=== PATIENT | male | born 1955 | race Two or more races ===

== ENCOUNTER 2020-01-31 11:06 | Emergency (ER) | payer SELFPAY ==
[~2020-01-31] VITALS: Ht 167.6 cm; Wt 75.0 kg
[2020-01-31 11:24] VITALS: BP 131/71
[2020-01-31] MEDS ORDERED: MECLIZINE 25MG TABLET PO ONE (15:45)
[2020-01-31 16:21] LABS: BASOPHILS % 0.9 % (0.0-2.0); EOSINOPHILS % 4.9 % (0.0-5.0); HEMATOCRIT. 46.8 % (42.0-52.0); LYMPHOCYTES % 24.2 % (20.0-50.0); MEAN CORPUSCULAR HEMOGLOBIN 31.8 pg (28.0-32.0); MEAN CORPUSCULAR VOLUME 93.1 fL (80.0-94.0); MEAN PLATELET VOLUME 8.8 fl (7.4-10.4); MONOCYTES % 7.8 % (2.0-8.0); NEUTROPHILS % 62.2 % (40.0-76.0); PLATELET 261 x1000/uL (130-400); RED BLOOD CELL COUNT 5.03 mill/uL (4.7-6.1); RED CELL DISTRIBUTION WIDTH 14.3 % (11.6-14.6)
[2020-01-31 16:23] LABS: CHLORIDE 109 mEq/L (98-107)
== END 2020-01-31 18:40 | disposition left against medical advice (07) ==
LOC: ER 11:06
DX: R42 Dizziness and giddiness (principal); E11.9 Type 2 diabetes mellitus without complications; I11.9 Hypertensive heart disease without heart failure; E78.00 Pure hypercholesterolemia, unspecified
CPT/HCPCS: 36415; 80053; 85025; 93005; 99284; J8597